=== PATIENT | male | born 1990 | race Caucasian/White ===

== ENCOUNTER 2018-08-08 13:05 | Emergency (ER) | payer OTHER ==
[~2018-08-08] VITALS: Ht 182.9 cm; Wt 104.3 kg
[2018-08-08] MEDS ORDERED: SUDOGEST30 MG PO (16:12)
[2018-08-08] MEDS ORDERED: AMOXICILLIN500 MG PO (16:12)
[2018-08-08] MEDS ORDERED: NORCO 7.5-3251 EACH PO (16:12)
== END 2018-08-08 16:46 | disposition home or self-care (01) ==
LOC: ED 13:05
DX: H92.02 Otalgia, left ear (principal)
CPT/HCPCS: 99282